=== PATIENT | male | born 1985 | race Caucasian/White ===

== ENCOUNTER 2017-06-11 14:38 | Emergency (ER) | payer SELFPAY ==
[~2017-06-11] VITALS: Ht 190.5 cm; Wt 80.5 kg
[2017-06-11 14:42] VITALS: BP 141/81; PULSE 99; RESP 16; TEMP 98.2; O2SAT 98
[2017-06-11] MEDS ORDERED: TRAM50TA PO (15:18)
[2017-06-11] MEDS ORDERED: CLIN150C14 PO (15:18)
--- NOTE | 2017-06-11 15:20 | PD ---
HPI Chief Complaint: Oral / Dental Pain or Problem Time Seen by Provider: 15:13 Travel History International Travel<30 days: No Contact w/Intl Traveler<30days: No Traveled to known affect area: No History of Present Illness HPI This patient complains of dental pain. He has an infected right lower jaw molar. Pain radiates up toward his right ear. Severity is moderate. Duration 2 days. no fever PFSH Past Medical History Medical History: Denies Significant Hx Diminished Hearing: No Immunizations Current: Yes Tetanus Vaccination: Unknown Influenza Vaccination: No Past Surgical History Oral Surgery: Yes (jaw) Social History Alcohol Use: No Tobacco Use: Yes (1 pk) Substance Use: No (in past) Allergies-Medications (Allergen,Severity, Reaction): Coded Allergies: amoxicillin (Verified Allergy, Severe, throat swelling, 06/11/17) Reported Meds & Prescriptions Reported Meds & Active Scripts Active No Active Prescriptions or Reported Medications Review of Systems General / Constitutional: No: Fever HENT: No: Headaches Cardiovascular: No: Chest Pain or Discomfort Respiratory: No: Cough Physical Exam Narrative SKIN: Focused skin assessment reveals no rash or ulcers. Skin is warm and dry. Palpation shows no induration or nodules. TMs normal Oral cavity: There looks to be a cavity in a right lower molar but no surrounding gingival abscess Psych: Normal mood and affect. Normal insight and judgment. Data Data Last Documented VS Vital Signs Date Time Temp Pulse Resp B/P (MAP) Pulse Ox O2 Delivery O2 Flow Rate FiO2 06/11/17 14:42 98.2 99 16 141/81 (101) 98 MDM Medical Decision Making Medical Screen Exam Complete: Yes Emergency Medical Condition: Yes Medical Record Reviewed: Yes Differential Diagnosis Cavity, gingivitis, abscess Narrative Course I have reviewed the patient's electronic medical record. Antibiotic some pain medicine prescribed and dental follow-up recommended Diagnosis Primary Impression: Pain, dental Additional Instructions: The patient was advised to follow up with their dentist The patient was warned about potential sedation for the medications they will receive on prescription. Med/Other Pt SpecificInfo: Prescription(s) given Scripts Tramadol (Tramadol) 50 Mg Tab 50 MG PO Q6H Y for PAIN, #20 TAB 0 Refills Prov: Blayne Sewell MD 06/11/17 Clindamycin (Clindamycin) 150 Mg Cap 300 MG PO Q8HR for Infection for 7 Days, CAP 0 Refills Prov: Blayne Sewell MD 06/11/17 Disposition: 01 DISCHARGE HOME Condition: Stable Blayne Sewell MD Jun 11, 2017 15:20
== END 2017-06-11 15:35 | disposition home or self-care (01) ==
LOC: PHEFT 14:38
DX: K08.89 Other specified disorders of teeth and supporting structures (principal); F17.210 Nicotine dependence, cigarettes, uncomplicated; Z88.0 Allergy status to penicillin
CPT/HCPCS: 99283